=== PATIENT | female | born 1985 | race African-American/Black ===

== ENCOUNTER 2016-12-18 07:33 | Day surgery (SDC) | payer OTHER ==
[2016-12-16 15:06] VITALS: BMI 28.2
[2016-12-18 08:01] LABS: BASOPHIL 0.4 % (0-2.0); EOSINOPHIL 1.3 % (0-4.5); MCH 26.9 pg (25.7-33.7); MCHC 33.4 g/dl (32.0-36.0); MEAN CELL VOLUME 80.7 fl (80-96); MEAN PLT VOLUME 7.1 fl (7.5-11.1); NEUTROPHILS 70.3 % (42.8-82.8); PLATELET COUNT 241 K/MM3 (134-434); WHITE BLOOD COUNT 7.9 K/mm3 (4.0-10.0)
--- NOTE | 2016-12-18 09:36 | HP ---
Admitting History and Physical - Admission Chief Complaint: Vaginal bleeding History of Present Illness: 31 yo Para 0, with positive chemical , has been bleeding for 2 weeks. Serial BHCG showed a slow decrease from 3600 mIU to 3200 mIU. She's Pre op for suction D&C. History Source: Patient Limitations to Obtaining History: No Limitations - Past Medical History ...LMP: 10/29/16 ...: Yes - Past Surgical History Past Surgical History: Yes: None - Smoking History Smoking history: Never smoked Have you smoked in the past 12 months: No - Alcohol/Substance Use Hx Alcohol Use: Yes (OCC) History of Substance Use: reports: None - Social History History of Recent Travel: No Home Medications - Allergies Allergies/Adverse Reactions: Allergies Allergy/AdvReac Type Severity Reaction Status Date / Time No Known Drug Allergies Allergy Verified 12/18/16 08:06 - Home Medications Home Medications: Ambulatory Orders Naproxen [Naprosyn -] 500 mg PO BID 12/16/16 Pnv #116/Iron Fumarate/FA/Dha [Expecta Combo Pack] 1 each PO DAILY Family Disease History - Family Disease History Family History: Unremarkable Review of Systems - Review of Systems Constitutional: reports: No Symptoms Eyes: reports: No Symptoms HENT: reports: No Symptoms Neck: reports: No Symptoms Cardiovascular: reports: No Symptoms Respiratory: reports: No Symptoms Gastrointestinal: reports: No Symptoms Genitourinary: reports: Vaginal Bleeding Breasts: reports: No Symptoms Reported Musculoskeletal: reports: No Symptoms Integumentary: reports: No Symptoms Neurological: reports: No Symptoms Psychiatric: reports: No Symptoms Pain Intensity: 2 Physical Examination Vital Signs: Vital Signs Temperature 97.7 F 12/18/16 08:03 Pulse Rate 73 12/18/16 08:03 Respiratory Rate 20 12/18/16 08:03 Blood Pressure 111/72 12/18/16 08:03 O2 Sat by Pulse Oximetry (%) 100 12/18/16 08:02 Constitutional: Yes: Well Nourished Eyes: Yes: Conjunctiva Clear HENT: Yes: Atraumatic Neck: Yes: Supple, Trachea Midline Cardiovascular: Yes: Regular Rate and Rhythm Respiratory: Yes: Regular, CTA Bilaterally Gastrointestinal: Yes: Normal Bowel Sounds Neurological: Yes: Alert, Oriented ...Motor Strength: WNL Psychiatric: Yes: Alert, Oriented Labs: CBC, BMP 12/18/16 07:46 Problem List - Problems (1) Incomplete with delayed or excessive hemorrhage Code(s): O03.1 - DELAYED OR EXCESSIVE HEMOR FOLLOWING INCMPL SPON Assessment/Plan Incomplete R/O Molar Pre op for suction D&C Consent signed Anesthesia to see Patient
[2016-12-18] MEDS ORDERED: PROPOFOL 20 ML ONE ×3 (09:43→09:59)
[2016-12-18] MEDS ORDERED: KETOROLAC TROMETHAMINE 30 MG/1 ML VIAL ONE (09:43)
[2016-12-18] MEDS ORDERED: MIDAZOLAM HCL 2 MG/2 ML SINGLE DOSE VIAL ONE (09:43)
[2016-12-18] MEDS ORDERED: LIDOCAINE HCL/PF 2% SDV 5ML VIAL ONE (09:43)
--- NOTE | 2016-12-18 10:11 | OP ---
Operative Note - Note: Operative Date: 12/18/16 Pre-Operative Diagnosis: Incomplete Operation: Suction D&C Findings: Product of conception Post-Operative Diagnosis: Same as Pre-op Surgeon: Dulce Beckwith Anesthesia: General Specimens Removed: Products of conception Estimated Blood Loss (mls): 20
[2016-12-18] MEDS ORDERED: ONDANSETRON 4 MG/2 ML VIAL IVPUSH PRN (11:34)
[2016-12-18] MEDS ORDERED: oxyCODONE HCL 5 MG TABLET PO PRN (11:34)
[2016-12-18 11:45] VITALS: TEMP 98.1
[2016-12-18] MEDS ORDERED: LACTATED RINGERS SOLUTION 1,000 ML IV SCH (11:45)
[2016-12-18 15:09] VITALS: BP 104/64; PULSE 65
--- NOTE | 2016-12-21 15:39 | PATH ---
Surgical Pathology Report Patient Name: KAITLIN GOLDMAN Med. Rec. #: [id number] /Age/Gender: 1985 (Age: 31) / F Account: [id number] Location: [facility] Taken: 12/18/2016 Received: 12/18/2016 Reported: 12/21/2016 Physicians: Dulce Beckwith M.D. Specimen(s) Received PRODUCTS OF CONCEPTION Clinical History Incomplete Final Diagnosis ----- PRODUCTS OF CONCEPTION: NO SOMATIC TISSUE IDENTIFIED. CHORIONIC VILLUS TISSUE PRESENT. FRAGMENTS OF NECROTIC DECIDUA. ___ Electronically Signed Rocky Taylor M.D. Gross Description Received in formalin, labeled "products of conception" is a 4.5 x 4.0 x 0.8 cm aggregate of cotto soft tissue fragments. Villous tissue is identified. No somatic tissue is identified. A containers sales representative portion is submitted in one cassette. 12/18/201612/18/2016
--- NOTE | 2017-01-04 20:26 | OP ---
DATE OF OPERATION: 12/18/2016 PREOPERATIVE DIAGNOSIS: Incomplete . POSTOPERATIVE DIAGNOSIS: Incomplete . PROCEDURE: Suction dilation and curettage. SURGEON: Dulce Beckwith M.D. ANESTHESIA: General. COMPLICATIONS: None. ESTIMATED BLOOD LOSS: 20 mL. PROCEDURE: Patient was taken to the operating room where general anesthesia was administered. Patient was then placed in lithotomy position. She was then prepped and draped in proper sterile fashion. A weighted speculum was placed in the vagina. The anterior lip of the cervix was grasped with a single-tooth tenaculum. Then the cervix was sequentially dilated with Alberts dilator. An 8-mm suction curet was then gently introduced into the uterine cavity. The curet was then rotated to clear the uterus of all products of conception. A sharp curettage was then performed. The curet was then reintroduced to clear the uterus of all remaining products of conception. Then the instruments were removed. The patient was taken out of lithotomy position. She was taken to PACU in stable condition. Pathology, products of conception. DULCE BECKWITH M.D. [id number]
== END 2016-12-18 13:00 | disposition home or self-care (01) ==
LOC: JASU-SURG 07:33
PROVIDERS: ATTEND Obstetrics & Gynecology
PROC: 10D17ZZ Extraction of Products of Conception, Retained, Via Natural or Artificial Opening (ICD-10-PCS; principal; 2016-12-18 09:30)
DX: O03.4 Incomplete spontaneous abortion without complication (principal)
CPT/HCPCS: 36415; 85025; 86850; 86900; 86901; 88305-TC; 94760

== ENCOUNTER 2018-07-09 02:45 | Inpatient (IN) | payer OTHER ==
[2018-07-09] MEDS ORDERED: AMPICILLIN - 2 GM in SODIUM CHLORIDE 100 ML IVPB ONE (02:58)
[2018-07-09] MEDS ORDERED: ELECTROLYTE-148 SOLN 1,000 ML IV SCH (03:00)
[2018-07-09 03:03] VITALS: BMI 36.3
[2018-07-09] MEDS ORDERED: NALOXONE HCL 0.4 MG/ML VIAL IVPUSH PRN (03:03)
--- NOTE | 2018-07-09 03:07 | HP ---
Past Medical History - Admission Chief Complaint: Labor pain History of Present Illness: 32 yo , @ 40 weeks gestation, EDC 07/07/18, presents to L&D c/o labor pain. Upon admission she was 4cm dilated with ruptured membrane. History Source: Patient Limitations to Obtaining History: No Limitations - Past Medical History ...: 2 ...Para: 0 ...Spon : 1 ...EDC by Sono: 07/07/18 - Past Surgical History Past Surgical History: Yes: None Hx Myomectomy: No Hx Transabdominal Cerclage: No - Smoking History Smoking history: Never smoked Have you smoked in the past 12 months: No - Alcohol/Substance Use Hx Alcohol Use: Yes (OCC) History of Substance Use: reports: None - Social History Usual Living Arrangement: Yes: With Spouse History of Recent Travel: No Home Medications - Allergies Allergies/Adverse Reactions: Allergies Allergy/AdvReac Type Severity Reaction Status Date / Time No Known Drug Allergies Allergy Verified 12/18/16 08:06 - Home Medications Home Medications: Ambulatory Orders No.116/Iron/Folic/Dha [Expecta Combo Pack] 1 each PO DAILY Ferrous Sulfate [Feosol] 325 mg PO DAILY 07/09/18 Family Disease History - Family Disease History Family History: Unremarkable Review of Systems - Review of Systems Constitutional: reports: No Symptoms Eyes: reports: No Symptoms HENT: reports: No Symptoms Neck: reports: No Symptoms Cardiovascular: reports: No Symptoms Respiratory: reports: No Symptoms Gastrointestinal: reports: No Symptoms Genitourinary: reports: Pain Breasts: reports: No Symptoms Reported Musculoskeletal: reports: No Symptoms Integumentary: reports: No Symptoms Neurological: reports: No Symptoms Endocrine: reports: No Symptoms Hematology/Lymphatic: reports: No Symptoms Psychiatric: reports: No Symptoms Pain Intensity: 7 Physical Exam - Maternity Constitutional: Yes: Well Nourished Eyes: Yes: Conjunctiva Clear HENT: Yes: Atraumatic Neck: Yes: Supple Cardiovascular: Yes: Regular Rate and Rhythm Lungs: Clear to auscultation - Abdominal Exam/OB Number of Fetuses: Single Presentation: Vertex Contractions: Yes Regularity: Regular - Vaginal Exam/OB Dilatation (cm): 4 Effacement (%): 80 Amniotic Membrane Status: Ruptured Presentation: Vertex/Position Station: -2 - Physical Exam Musculoskeletal: Yes: WNL Extremities: Yes: WNL ...Motor Strength: WNL Psychiatric: Yes: Alert, Oriented Problem List - Problems (1) 40 weeks gestation of Code(s): Z3A.40 - 40 WEEKS GESTATION OF Assessment/Plan 40 weeks gestation Active labor Admit to L&D GBS prophylaxis Analgesia as needed Anticipate
[2018-07-09] MEDS ORDERED: AMPICILLIN SODIUM 2 GM VIAL ONE (03:10)
[2018-07-09] MEDS ORDERED: FENTANYL/BUPIVACAINE/NS/PF - PCEA - 50 ML DISP.SYRIN EP SCH (03:15)
[2018-07-09 03:16] LABS: BASO % 0.4 % (0-2.0); EOS % 0.5 % (0-4.5); HEMATOCRIT 34.7 % (32.4-45.2); HEMOGLOBIN 11.3 GM/dL (10.7-15.3); LYMPH % 14.4 % (8-40); MCH 26.7 pg (25.7-33.7); MCHC 32.7 g/dl (32.0-36.0); MEAN CELL VOLUME 81.8 fl (80-96); MONO % 7.6 % (3.8-10.2); NEUT % 77.1 % (42.8-82.8); PLATELET COUNT 242 K/MM3 (134-434); RBC 4.25 M/mm3 (3.60-5.2); RDW 14.1 % (11.6-15.6); WHITE BLOOD COUNT 14.6 K/mm3 (4.0-10.0)
[2018-07-09 03:29] LABS: INR 0.9 (0.83-1.09); PROTHROMBIN TIME (PATIENT) 10.2 SEC (9.7-13.0)
[2018-07-09 03:32] LABS: ACTIVATED PTT 26.8 SECONDS (25.2-36.5)
[2018-07-09 03:34] LABS: ANION GAP 7 MMOL/L (8-16); BLOOD UREA NITROGEN 18 mg/dL (7-18); CALCIUM 8.4 mg/dL (8.5-10.1); CHLORIDE 107 mmol/L (98-107); CO2 25 mmol/L (21-32); CREATININE 0.8 mg/dL (0.55-1.3); GLUCOSE,RANDOM 121 mg/dL (74-106); POTASSIUM 4.2 mmol/L (3.5-5.1); SODIUM 139 mmol/L (136-145)
[2018-07-09] MEDS ORDERED: FENTANYL/BUPIVACAINE/NS/PF - PCEA - 50 ML DISP.SYRIN EP ONE ×2 (03:42→08:09)
[2018-07-09] MEDS ORDERED: ELECTROLYTE-148 SOLN 1,000 ML IV ONE (05:00)
[2018-07-09] MEDS: AMPICILLIN - 1 GM in SODIUM CHLORIDE 100 ML IVPB SCH ×2 (07:15→11:32)
[2018-07-09] MEDS ORDERED: TUBERCULIN PPD 5 TU/0.1ML SYRINGE (IN PATIENT USE ONLY) ID ONE ×2 (07:30→09:00)
[2018-07-09] MEDS ORDERED: AMPICILLIN SODIUM 1 GM VIAL ONE (07:33)
[2018-07-09] MEDS ORDERED: OXYTOCIN 20 UNITS in 0.9% NS 20 UNIT/1,000 ML INFUS.BAG IV ONE (09:28)
[2018-07-09] MEDS ORDERED: LIDOCAINE HCL 1% PRESERVATIVE FREE - 30ML VIAL ONE (09:57)
[2018-07-09] MEDS ORDERED: OXYTOCIN 30 UNITS in 0.9% NS 30 UNIT/500 ML INFUS.BAG IVPB ONE (10:03)
[2018-07-09] MEDS ORDERED: BISACODYL 10 MG SUPP.RECT RC PRN (10:56)
[2018-07-09] MEDS ORDERED: METHYLERGONOVINE MALEATE 0.2 MG/1 ML AMP IM PRN (10:56)
[2018-07-09] MEDS ORDERED: BENZOCAINE 20% 57 GM BOTTLE TP PRN (10:56)
[2018-07-09] MEDS ORDERED: BENZOCAINE 28 GM HEMORRHOIDAL OINTMENT TP PRN (10:56)
[2018-07-09] MEDS ORDERED: WITCH HAZEL 50% (TUCKS) 40 PAD/JAR PAD TP PRN (10:56)
[2018-07-09] MEDS ORDERED: OXYTOCIN 20 UNITS in 0.9% NS 20 UNIT/1,000 ML INFUS.BAG IV SCH (11:00)
--- NOTE | 2018-07-09 11:01 | PN ---
Delivery - Delivery Vaginal Delivery: Spontaneous Type of Anesthesia: Epidural Episiotomy/Laceration: 1st degree EBL (cc): 300 Delivery, Single - Ward Feeding Plan Initial Plan: Exclusive throughout hospitalization Remarks - Remarks Remarks: Normal spontaneous vaginal delivery of a live boy over first degree laceration. Nose / Oropharynx suction @ perineum. Tight nuchal cord clamped and cut. Placenta expelled spontaneously intact. Laceration repaired with 2.0 Biosyn.
[2018-07-09] MEDS ORDERED: OXYTOCIN 30 UNITS in 0.9% NS 30 UNIT/500 ML INFUS.BAG IVPB SCH (11:15)
[2018-07-09] MEDS: FERROUS SO4 325 MG TABLET (FP) PO SCH (22:52)
[2018-07-10] MEDS: IBUPROFEN 600 MG TABLET (FP) PO PRN ×2 (01:35→10:40)
[2018-07-10] MEDS: ACETAMINOPHEN 325 MG TABLET (FP) PO PRN ×2 (01:35→10:39)
--- NOTE | 2018-07-10 07:08 | PN ---
Post Progress Note - Subjective Subjective: PT doing well. Pain controlled. VB minimal. Tolerating diet, ambulating, voiding. Type of Delivery: Vital Signs: Vital Signs Temperature 98.0 F 07/10/18 06:00 Pulse Rate 97 H 07/10/18 06:00 Respiratory Rate 18 07/10/18 06:00 Blood Pressure 102/56 07/10/18 06:00 O2 Sat by Pulse Oximetry (%) 95 07/09/18 10:15 Uterus: Yes: Fundus Firm Incision: Yes: Dressing dry and intact Abdomen/GI: Yes: Abdomen soft Lochia: Yes: Rubra Lochia, amount: Small Extremities: Yes: Calves non-tender. No: Edema Perineum: Yes: Laceration (1st degree, repaired) Activity: Ambulating - Labs Labs: CBC WBC 14.6 K/mm3 (4.0-10.0) H 07/09/18 03:05 RBC 4.25 M/mm3 (3.60-5.2) 07/09/18 03:05 Hgb 11.3 GM/dL (10.7-15.3) 07/09/18 03:05 Hct 34.7 % (32.4-45.2) 07/09/18 03:05 MCV 81.8 fl (80-96) 07/09/18 03:05 MCH 26.7 pg (25.7-33.7) 07/09/18 03:05 MCHC 32.7 g/dl (32.0-36.0) 07/09/18 03:05 RDW 14.1 % (11.6-15.6) 07/09/18 03:05 Plt Count 242 K/MM3 (134-434) 07/09/18 03:05 MPV 8.0 fl (7.5-11.1) D 07/09/18 03:05 Absolute Neuts (auto) 11.3 K/mm3 (1.5-8.0) H 07/09/18 03:05 Neutrophils % 77.1 % (42.8-82.8) 07/09/18 03:05 Lymphocytes % 14.4 % (8-40) D 07/09/18 03:05 Monocytes % 7.6 % (3.8-10.2) 07/09/18 03:05 Eosinophils % 0.5 % (0-4.5) 07/09/18 03:05 Basophils % 0.4 % (0-2.0) 07/09/18 03:05 Nucleated RBC % 0 % (0-0) 07/09/18 03:05 Problem List - Problems (1) Vaginal delivery Code(s): O80 - ENCOUNTER FOR FULL-TERM UNCOMPLICATED DELIVERY Assessment/Plan 32 y/o PPD1 s/p normal AFVSS CBC pending regular diet PO pain meds routine care
[2018-07-10 07:25] LABS: BASO % 0.2 % (0-2.0); EOS % 0.2 % (0-4.5); HEMATOCRIT 26.7 % (32.4-45.2); HEMOGLOBIN 8.7 GM/dL (10.7-15.3); LYMPH % 10.1 % (8-40); MCH 26.3 pg (25.7-33.7); MCHC 32.4 g/dl (32.0-36.0); MEAN CELL VOLUME 81.2 fl (80-96); MEAN PLT VOLUME 7.8 fl (7.5-11.1); MONO % 7.2 % (3.8-10.2); NEUT % 82.3 % (42.8-82.8); PLATELET COUNT 186 K/MM3 (134-434); RBC 3.29 M/mm3 (3.60-5.2); WHITE BLOOD COUNT 18.5 K/mm3 (4.0-10.0)
[2018-07-10] MEDS ORDERED: DIPHTH,PERTUSS(ACELL),TET 0.5 ML DISP.SYRIN IM ONE (10:00)
[2018-07-10] MEDS: PRENATAL VITAMINS W/ FOLIC ACID TABLET (FP) PO SCH (10:32)
[2018-07-10] MEDS: FERROUS SO4 325 MG TABLET (FP) PO SCH ×2 (10:32→21:29)
[2018-07-10] MEDS ORDERED: SENNOSIDES/DOCUSATE COMBO (SENNA PLUS) TABLET (UD) PO PRN (22:00)
[2018-07-11] MEDS: IBUPROFEN 600 MG TABLET (FP) PO PRN (07:51)
[2018-07-11] MEDS: ACETAMINOPHEN 325 MG TABLET (FP) PO PRN (07:52)
[2018-07-11] MEDS: PRENATAL VITAMINS W/ FOLIC ACID TABLET (FP) PO SCH (09:12)
[2018-07-11] MEDS: FERROUS SO4 325 MG TABLET (FP) PO SCH (09:13)
[2018-07-11 09:50] VITALS: BP 117/63; PULSE 84; TEMP 97.7
--- NOTE | 2018-07-11 09:51 | DS ---
Physical Exam-[employer] Vital Signs: Vital Signs Temperature 98.0 F 07/10/18 20:32 Pulse Rate 94 H 07/10/18 20:32 Respiratory Rate 20 07/10/18 20:32 Blood Pressure 122/70 07/10/18 20:32 O2 Sat by Pulse Oximetry (%) 95 07/09/18 10:15 Constitutional: Yes: Well Nourished Eyes: Yes: Conjunctiva Clear HENT: Yes: Atraumatic Neck: Yes: Supple Cardiovascular: Yes: Regular Rate and Rhythm Respiratory: Yes: Regular Gastrointestinal: Yes: Normal Bowel Sounds ...Rectal Exam: Yes: WNL Renal/: Yes: WNL Pelvis: Yes: WNL External Genitalia: Yes: Normal Vaginal Exam: Yes: Normal Cervix: Yes: Normal Uterus: Yes: Firm ....Post : Yes: Uterus firm, Moderate lochia serosa Breast(s): Yes: WNL Musculoskeletal: Yes: WNL Extremities: Yes: WNL Neurological: Yes: Alert, Oriented ...Motor Strength: WNL Psychiatric: Yes: Alert, Oriented Labs: CBC, BMP 07/10/18 06:55 07/09/18 03:05 Delivery - Delivery Vaginal Delivery: Spontaneous Type of Anesthesia: Epidural Episiotomy/Laceration: None, Perineal Extension/lac, 1st degree EBL (cc): 300 Delivery, Single - Stages of Labor Date 1st Stage Initiatied: 07/09/18 Time 1st Stage Initiated: 00:00 Date 2nd Stage Initiated: 07/09/18 Time 2nd Stage Initiated: 10:00 Date of Delivery: 07/09/18 Time of Delivery: 10:33 Time Placenta Delivered: 10:36 - Condition of Infant Stem Crusher/Cannon Fire Direction Specialist Present: Yes Name: Eliazar Armstrong Gender: Male Weight: 7 lb 2 oz Position: Right, OA Total Hours ROM (Hrs/Mins): 9/6 - 1 Minute Total Score: 6 5 Minutes Total Score: 9 - Reading Feeding Plan Initial Plan: Exclusive throughout hospitalization Discharge Summary Reason For Visit: LABOR Current Active Problems 40 weeks gestation of (Acute) Vaginal delivery (Acute) Procedures: Principal: Normal spontaneous vaginal delivery Hospital Course: Routine care Condition: Good - Instructions Diet, Activity, Other Instructions: Regular diet No driving, no lifting x 4 weeks. F/U with in 6 weeks Disposition: HOME - Home Medications Comprehensive Discharge Medication List: Ambulatory Orders No.116/Iron/Folic/Dha [Expecta Combo Pack] 1 each PO DAILY Ferrous Sulfate [Feosol] 325 mg PO DAILY 07/09/18
[2018-07-11 10:17] LABS: BASO % 0.2 % (0-2.0); EOS % 0.7 % (0-4.5); HEMATOCRIT 30.2 % (32.4-45.2); HEMOGLOBIN 9.9 GM/dL (10.7-15.3); LYMPH % 10.5 % (8-40); MCHC 32.7 g/dl (32.0-36.0); MEAN CELL VOLUME 82.4 fl (80-96); MEAN PLT VOLUME 7.5 fl (7.5-11.1); MONO % 5.6 % (3.8-10.2); PLATELET COUNT 219 K/MM3 (134-434); RBC 3.66 M/mm3 (3.60-5.2); RDW 13.9 % (11.6-15.6); WHITE BLOOD COUNT 15.4 K/mm3 (4.0-10.0)
== END 2018-07-11 19:40 | disposition home or self-care (01) | DRG 775 ==
LOC: JLDR 02:45 → J3W 12:30
PROVIDERS: ADMIT Obstetrics & Gynecology; ATTEND Obstetrics & Gynecology
PROC: 10E0XZZ Delivery of Products of Conception, External Approach (ICD-10-PCS; principal; 2018-07-09)
PROC: 0HQ9XZZ Repair Perineum Skin, External Approach (ICD-10-PCS; 2018-07-09)
DX: O48.0 Post-term pregnancy (principal); O70.0 First degree perineal laceration during delivery; Z3A.40 40 weeks gestation of pregnancy; Z37.0 Single live birth; O69.1XX0 Labor and delivery complicated by cord around neck, with compression, not applicable or unspecified
CPT/HCPCS: 36415; 59409; 80048; 85025; 85610; 85730; 86593; 86850; 86900; 86901; 90715